=== PATIENT | male | born 1950 | race African-American/Black ===

== ENCOUNTER 2020-06-11 15:04 | Inpatient (IN) | payer OTHER ==
[~2020-06-11] VITALS: Ht 185.4 cm; Wt 64.4 kg
[2020-06-11] MEDS ORDERED: ALBUTEROL (0.083%) 2.5MG/3ML NEB HHN STA (15:18)
[2020-06-11] MEDS ORDERED: IPRATROPIUM BROMIDE (0.02%) 0.5MG/2.5ML NEB HHN STA (15:18)
[2020-06-11] MEDS ORDERED: METHYLPREDNISOLONE SOD SUCC 125 MG/2 ML VIAL IV STA (15:18)
[2020-06-11] MEDS ORDERED: ONDANSETRON HCL 4MG/2ML INJ IV ONE (15:30)
[2020-06-11 15:35] LABS: HEMATOCRIT. 28.2 % (42.0-52.0); HEMOGLOBIN. 8.7 g/dL (14.0-18.0); MEAN CORPUSCULAR HEMOGLOBIN 33.1 pg (28.0-32.0); MEAN CORPUSCULAR VOLUME 107.1 fL (80.0-94.0); MEAN PLATELET VOLUME 10.4 fl (7.4-10.4); PLATELET 189 x1000/uL (130-400); RED BLOOD CELL COUNT 2.63 mill/uL (4.7-6.1); RED CELL DISTRIBUTION WIDTH 19.6 % (11.6-14.6)
[2020-06-11 15:40] LABS: CHLORIDE 110 mEq/L (98-107)
[2020-06-11] MEDS ORDERED: SODIUM CHLORIDE 0.9% 1,000 ML IV ONE (16:30)
[2020-06-11 16:36] LABS: PLATELET ESTIMATE NORMAL
[2020-06-11 17:43] LABS: BG BASE EXCESS -1.9 mmol/L (-2.0-2.0); BG CARBOXYHEMOGLOBIN 0.3 % (0.5-1.5); BG DEOXYHEMOGLOBIN 0.8 % (0.0-5.0); BG FRACTION INSPIRED OXYGEN 50; BG HCO3 ACT 22.6 mmol/L (22.0-26.0); BG METHEMOGLOBIN 0.3 % (0.0-1.5); BG OXYGEN SATURATION 99.2 % (92.0-98.5); BG OXYHEMOGLOBIN 98.6 % (94.0-97.0); BG PH 7.403 (7.350-7.450); BG PO2 167.7 mmHg (75.0-100.0); BG SAMPLE SITE LEFT BRACHIAL; BG TOTAL HEMOGLOBIN 8.4 g/dL (12.0-18.0); BG VENT MODE MASK - VENTI
[2020-06-11] MEDS ORDERED: PANTOPRAZOLE SODIUM 40 MG/VIAL IV ONE (18:00)
[2020-06-11 21:40] VITALS: BP 104/73
[2020-06-11 22:00] VITALS: BP 104/73
[2020-06-12] VITALS: BP 94/72
[2020-06-12] MEDS ORDERED: ACETAMINOPHEN 325MG TABLET PO PRN (00:45)
[2020-06-12] MEDS ORDERED: ONDANSETRON HCL 4MG/2ML INJ IV PRN (00:45)
[2020-06-12] MEDS ORDERED: CLONIDINE 0.1MG TABLET PO PRN (00:45)
[2020-06-12 04:00] VITALS: BP 110/71
[2020-06-12 06:05] LABS: CHLORIDE 113 mEq/L (98-107)
[2020-06-12 06:36] LABS: BASOPHILS % 0.7 % (0.0-2.0); HEMATOCRIT. 23.7 % (42.0-52.0); HEMOGLOBIN. 7.6 g/dL (14.0-18.0); LYMPHOCYTES % 11.8 % (20.0-50.0); MEAN CORPUSCULAR HEMOGLOBIN 32.9 pg (28.0-32.0); MEAN CORPUSCULAR VOLUME 103.2 fL (80.0-94.0); MEAN PLATELET VOLUME 9.8 fl (7.4-10.4); MONOCYTES % 11.2 % (2.0-8.0); NEUTROPHILS % 76.3 % (40.0-76.0); PLATELET 166 x1000/uL (130-400); RED CELL DISTRIBUTION WIDTH 19.4 % (11.6-14.6)
[2020-06-12 08:00] VITALS: BP 107/80
[2020-06-12] MEDS ORDERED: IPRATROPIUM/ALBUTEROL 0.5-3(2.5)MG/3ML NEB HHN PRN (09:15)
[2020-06-12] MEDS: METHYLPREDNISOLONE SOD SUCC 40 MG/ML VIAL IV SCH ×3 (10:51→21:59)
[2020-06-12 12:00] VITALS: BP 111/85
[2020-06-12] MEDS ORDERED: IPRATROPIUM/ALBUTEROL 0.5-3(2.5)MG/3ML NEB HHN SCH (12:00)
[2020-06-12 16:00] VITALS: BP 114/73
[2020-06-12] MEDS: IPRATROPIUM/ALBUTEROL 0.5-3(2.5)MG/3ML NEB HHN SCH ×2 (16:29→20:08)
[2020-06-12 20:00] VITALS: BP 116/67
[2020-06-12] MEDS: MONTELUKAST SODIUM 10MG TABLET PO SCH (21:59)
[2020-06-13] VITALS (10 sets, daily range): BP systolic 90–130; BP diastolic 66–77
[2020-06-13] MEDS: IPRATROPIUM/ALBUTEROL 0.5-3(2.5)MG/3ML NEB HHN SCH ×5 (00:47→15:49)
[2020-06-13 05:35] LABS: *AMPHETAMINES SCREEN URINE NEGATIVE (NEGATIVE); *BARBITURATES SCREEN URINE NEGATIVE (NEGATIVE); *BENZODIAZEPINES SCREEN URINE NEGATIVE (NEGATIVE)
[2020-06-13 05:36] LABS: *COCAINE SCREEN URINE NEGATIVE (NEGATIVE); CANNABINOID URINE SCREEN NEGATIVE (NEGATIVE); METHADONE URINE SCREEN NEGATIVE (NEGATIVE); OPIATES URINE SCREEN NEGATIVE (NEGATIVE); PHENCYCLIDINE URINE SCREEN NEGATIVE (NEGATIVE)
[2020-06-13] MEDS: METHYLPREDNISOLONE SOD SUCC 40 MG/ML VIAL IV SCH ×4 (05:51→22:39)
[2020-06-13] MEDS: PANTOPRAZOLE SODIUM 40 MG/VIAL IV SCH (10:07)
[2020-06-13] MEDS ORDERED: LEVOFLOXACIN 500MG PREMIX 100 ML IV SCH (11:00)
[2020-06-13 12:10] LABS: MEAN CORPUSCULAR HEMOGLOBIN 33.6 pg (28.0-32.0); MEAN CORPUSCULAR VOLUME 104.4 fL (80.0-94.0); MEAN PLATELET VOLUME 9.6 fl (7.4-10.4); PLATELET 153 x1000/uL (130-400); RED BLOOD CELL COUNT 1.98 mill/uL (4.7-6.1); RED CELL DISTRIBUTION WIDTH 20.5 % (11.6-14.6)
[2020-06-13 12:14] LABS: HEMOGLOBIN. 6.6 g/dL (14.0-18.0)
[2020-06-13 12:15] LABS: HEMATOCRIT. 20.6 % (42.0-52.0)
[2020-06-13 12:22] LABS: TOTAL IRON BINDING CAPACITY 153 ug/dL (250-450)
[2020-06-13 12:25] LABS: PROTHROMBIN TIME 10.9 sec (9.6-11.0)
[2020-06-13 12:40] LABS: FOLIC ACID (FOLATE) SERUM 2.7 ng/mL (>5.38)
[2020-06-13] MEDS ORDERED: BUDESONIDE 0.5MG/2ML NEB HHN SCH (13:00)
[2020-06-13 13:02] LABS: NUCLEATED RED BLOOD CELLS 2 /100 WBC; PLATELET ESTIMATE NORMAL
[2020-06-13] MEDS ORDERED: ACETYLCYSTEINE 100MG/ML 10% VIAL 4ML INH SCH (14:00)
[2020-06-13 19:13] LABS: HEMATOCRIT 23.6 % (42.0-52.0); HEMOGLOBIN 7.6 g/dL (14.0-18.0)
[2020-06-13 19:23] LABS: INR 1.1; PROTHROMBIN TIME 11.3 sec (9.6-11.0)
[2020-06-13] MEDS ORDERED: LORAZEPAM 1MG TABLET PO PRN (19:45)
[2020-06-13] MEDS: MONTELUKAST SODIUM 10MG TABLET PO SCH ×2 (20:55→21:00)
[2020-06-13] MEDS: MORPHINE SULFATE 2 MG/ML CPJ (NOT FOR IM USE) IV PRN (22:34)
[2020-06-14] VITALS: BP 114/68
[2020-06-14] MEDS: ALBUTEROL (0.083%) 2.5MG/3ML NEB HHN SCH ×6 (00:57→20:30)
[2020-06-14 04:00] VITALS: BP 112/77
[2020-06-14] MEDS: METHYLPREDNISOLONE SOD SUCC 40 MG/ML VIAL IV SCH ×3 (05:27→22:02)
[2020-06-14 06:05] LABS: HEMATOCRIT. 25.1 % (42.0-52.0); HEMOGLOBIN. 8.2 g/dL (14.0-18.0); MEAN CORPUSCULAR HEMOGLOBIN 31.6 pg (28.0-32.0); PLATELET 131 x1000/uL (130-400); RED BLOOD CELL COUNT 2.59 mill/uL (4.7-6.1); RED CELL DISTRIBUTION WIDTH 24.1 % (11.6-14.6)
[2020-06-14 08:00] VITALS: BP 107/77
[2020-06-14] MEDS: PANTOPRAZOLE SODIUM 40 MG/VIAL IV SCH (08:47)
[2020-06-14] MEDS: SODIUM CHLORIDE 0.9% 1,000 ML IV SCH (10:18)
[2020-06-14] MEDS ORDERED: LEVOFLOXACIN 250MG PREMIX 50 ML IV SCH (11:00)
[2020-06-14 11:43] VITALS: BP 105/75
[2020-06-14 16:00] VITALS: BP 131/85
[2020-06-14 20:00] VITALS: BP 125/88
[2020-06-14] MEDS: MONTELUKAST SODIUM 10MG TABLET PO SCH ×2 (21:00→22:02)
[2020-06-15] VITALS (10 sets, daily range): BP systolic 100–131; BP diastolic 57–85
[2020-06-15] MEDS: ALBUTEROL (0.083%) 2.5MG/3ML NEB HHN SCH ×6 (00:10→19:41)
[2020-06-15 00:16] LABS: NUCLEATED RED BLOOD CELLS 7 /100 WBC; PLATELET ESTIMATE NORMAL
[2020-06-15] MEDS: SODIUM CHLORIDE 0.9% 1,000 ML IV SCH ×2 (03:50→19:05)
[2020-06-15] MEDS: METHYLPREDNISOLONE SOD SUCC 40 MG/ML VIAL IV SCH ×3 (06:19→22:32)
[2020-06-15 07:02] LABS: HEMATOCRIT. 22.1 % (42.0-52.0); HEMOGLOBIN. 7.2 g/dL (14.0-18.0); MEAN CORPUSCULAR HEMOGLOBIN 32.1 pg (28.0-32.0); MEAN CORPUSCULAR VOLUME 98.3 fL (80.0-94.0); MEAN PLATELET VOLUME 10.1 fl (7.4-10.4); PLATELET 119 x1000/uL (130-400); RED BLOOD CELL COUNT 2.25 mill/uL (4.7-6.1); RED CELL DISTRIBUTION WIDTH 24.3 % (11.6-14.6)
[2020-06-15] MEDS: PANTOPRAZOLE SODIUM 40 MG/VIAL IV SCH (08:38)
[2020-06-15] MEDS: FOLIC ACID 1MG TABLET PO SCH (08:38)
[2020-06-15 08:57] LABS: CHLORIDE 108 mEq/L (98-107)
[2020-06-15] MEDS: LEVOFLOXACIN 250MG TABLET PO SCH (11:32)
[2020-06-15 14:40] LABS: NUCLEATED RED BLOOD CELLS 9 /100 WBC
[2020-06-15 14:41] LABS: PLATELET ESTIMATE SLIGHTLY DECREASED
[2020-06-15] MEDS: MONTELUKAST SODIUM 10MG TABLET PO SCH (22:32)
[2020-06-16] VITALS (11 sets, daily range): BP systolic 90–131; BP diastolic 52–91
[2020-06-16] MEDS: ALBUTEROL (0.083%) 2.5MG/3ML NEB HHN SCH ×7 (00:09→23:36)
[2020-06-16] MEDS: METHYLPREDNISOLONE SOD SUCC 40 MG/ML VIAL IV SCH (06:29)
[2020-06-16 08:16] LABS: HEMATOCRIT 27.6 % (42.0-52.0)
[2020-06-16] MEDS: FOLIC ACID 1MG TABLET PO SCH (09:19)
[2020-06-16] MEDS: PANTOPRAZOLE SODIUM 40 MG/VIAL IV SCH (09:20)
[2020-06-16] MEDS: LEVOFLOXACIN 250MG TABLET PO SCH (10:50)
[2020-06-16] MEDS ORDERED: TERBUTALINE SULFATE 1MG/ML VIAL SUBCUT NR (14:00)
[2020-06-16] MEDS: METHYLPREDNISOLONE SOD SUCC 125 MG/2 ML VIAL IV SCH ×2 (14:24→21:00)
[2020-06-16] MEDS: LORATADINE 10MG TABLET PO SCH (14:24)
[2020-06-16] MEDS: MORPHINE SULFATE 2 MG/ML CPJ (NOT FOR IM USE) IV PRN ×2 (18:36→21:00)
[2020-06-16] MEDS: MONTELUKAST SODIUM 10MG TABLET PO SCH (21:00)
[2020-06-16] MEDS ORDERED: FAMOTIDINE 20MG/2ML VIAL IV SCH (21:00)
[2020-06-16] MEDS ORDERED: IOHEXOL-350 100 ML BOTTLE ONE (21:05)
[2020-06-17] VITALS: BP 124/68
[2020-06-17] MEDS: MORPHINE SULFATE 2 MG/ML CPJ (NOT FOR IM USE) IV PRN ×2 (00:43→04:36)
[2020-06-17 00:46] VITALS: BP 117/82
[2020-06-17] MEDS: ALBUTEROL (0.083%) 2.5MG/3ML NEB HHN SCH ×4 (04:00→16:08)
[2020-06-17] MEDS: METHYLPREDNISOLONE SOD SUCC 125 MG/2 ML VIAL IV SCH ×2 (05:11→13:41)
[2020-06-17] MEDS ORDERED: KETOROLAC 15MG/ML VIAL IV PRN (07:00)
[2020-06-17] MEDS ORDERED: KETOROLAC 30MG/ML VIAL IV PRN (07:00)
[2020-06-17 08:00] VITALS: BP 101/57
[2020-06-17] MEDS: FOLIC ACID 1MG TABLET PO SCH (09:00)
[2020-06-17] MEDS: LORATADINE 10MG TABLET PO SCH (09:00)
[2020-06-17] MEDS: LEVOFLOXACIN 250MG TABLET PO SCH (11:00)
[2020-06-17 12:00] VITALS: BP 106/68
[2020-06-17 15:15] VITALS: BP 106/68
== END 2020-06-17 17:20 | disposition home or self-care (01) | DRG 377 ==
LOC: ER 15:31 → 6WST 19:57 → EDBEDREQTM 19:58 → EDBEDREQ 19:58 → ENRESERV 20:26
PROVIDERS: ADMIT Hospitalist; ATTEND Hospitalist
PROC: 5A09357 Assistance with Respiratory Ventilation, Less than 24 Consecutive Hours, Continuous Positive Airway Pressure (ICD-10-PCS; 2020-06-11)
PROC: 30233N1 Transfusion of Nonautologous Red Blood Cells into Peripheral Vein, Percutaneous Approach (ICD-10-PCS; principal; 2020-06-13)
DX: K92.2 Gastrointestinal hemorrhage, unspecified (principal); J96.00 Acute respiratory failure, unspecified whether with hypoxia or hypercapnia; E43 Unspecified severe protein-calorie malnutrition; J44.1 Chronic obstructive pulmonary disease with (acute) exacerbation; N17.9 Acute kidney failure, unspecified; Z68.1 Body mass index [BMI] 19.9 or less, adult; C90.00 Multiple myeloma not having achieved remission; D68.59 Other primary thrombophilia; M84.48XA Pathological fracture, other site, initial encounter for fracture; D53.9 Nutritional anemia, unspecified; D63.8 Anemia in other chronic diseases classified elsewhere; D72.1 Eosinophilia; I10 Essential (primary) hypertension; Z87.891 Personal history of nicotine dependence; Z99.81 Dependence on supplemental oxygen; Z82.49 Family history of ischemic heart disease and other diseases of the circulatory system
CPT/HCPCS: 36415; 36600; 71045; 71275; 76700; 80048; 80053; 80305; 82270; 82375; 82607; 82728; 82746; 82805; 83540; 83550; 83735; 83880; 84425; 84484; 85014; 85018; 85025; 85049; 85384; 86850; 86900; 86920; 94640; 94660; 99291; C9113; J1956; J2270; J2405; J2920; J2930; J3105; J3490; J7030; J7608; J7626; P9016; Q9967